=== PATIENT | male | born 1940 | race Caucasian/White ===

== ENCOUNTER → 2019-12-25 | Outpatient (CLI) | payer OTHER, BC ==
[~2019-12-25] MED LIST: AMLODIPINE BESY10 MG PO; ASPIRIN325 PO; ATORVASTATIN CA40 MG PO; COUMADIN 5 MG TA5 M1 PO; FENOFIBRATE160 MG PO; GLUCOTROL5 MG PO; LISINOPRIL20 MG PO; LOPRESSOR25 PO; METFORMIN HCL500 MG PO; PLAVIX 75 MG TA75 M1 PO; VITAMIN B-12500 MCG PO
== END ==
LOC: SJCVCIMAG 09:52
DX: I65.23 Occlusion and stenosis of bilateral carotid arteries (principal); R94.31 Abnormal electrocardiogram [ECG] [EKG]; I21.29 ST elevation (STEMI) myocardial infarction involving other sites; I44.0 Atrioventricular block, first degree; I25.10 Atherosclerotic heart disease of native coronary artery without angina pectoris; I71.2 Thoracic aortic aneurysm, without rupture; E78.5 Hyperlipidemia, unspecified; I10 Essential (primary) hypertension; E11.9 Type 2 diabetes mellitus without complications; Z95.2 Presence of prosthetic heart valve; Z79.01 Long term (current) use of anticoagulants; Z95.1 Presence of aortocoronary bypass graft; Z79.899 Other long term (current) drug therapy

== ENCOUNTER → 2020-06-25 | Outpatient (CLI) | payer OTHER, BC | LOC: SJCVC 13:00 | PROVIDERS: ATTEND Internal Medicine | DX: I25.10 Atherosclerotic heart disease of native coronary artery without angina pectoris (principal); R94.31 Abnormal electrocardiogram [ECG] [EKG]; I44.0 Atrioventricular block, first degree; I71.2 Thoracic aortic aneurysm, without rupture; I65.23 Occlusion and stenosis of bilateral carotid arteries; E78.5 Hyperlipidemia, unspecified; I10 Essential (primary) hypertension; E11.9 Type 2 diabetes mellitus without complications; Z95.2 Presence of prosthetic heart valve; Z79.01 Long term (current) use of anticoagulants; Z79.899 Other long term (current) drug therapy ==

== ENCOUNTER → 2021-01-05 | Outpatient (CLI) | payer OTHER, BC | LOC: SJCVCIMAG 08:43 | PROVIDERS: ATTEND Internal Medicine | DX: R94.31 Abnormal electrocardiogram [ECG] [EKG] (principal); I44.7 Left bundle-branch block, unspecified; I25.10 Atherosclerotic heart disease of native coronary artery without angina pectoris; I71.2 Thoracic aortic aneurysm, without rupture; I65.23 Occlusion and stenosis of bilateral carotid arteries; I44.0 Atrioventricular block, first degree; E78.5 Hyperlipidemia, unspecified; I10 Essential (primary) hypertension; E11.9 Type 2 diabetes mellitus without complications; Z79.01 Long term (current) use of anticoagulants; Z95.2 Presence of prosthetic heart valve; Z79.899 Other long term (current) drug therapy; Z72.89 Other problems related to lifestyle; Z79.82 Long term (current) use of aspirin; Z79.84 Long term (current) use of oral hypoglycemic drugs; Z86.73 Personal history of transient ischemic attack (TIA), and cerebral infarction without residual deficits ==

== ENCOUNTER → 2021-06-18 | Outpatient (CLI) | payer OTHER, BC | LOC: SJCVC 14:02 | PROVIDERS: ATTEND Internal Medicine | DX: R94.31 Abnormal electrocardiogram [ECG] [EKG] (principal); I44.0 Atrioventricular block, first degree; R42 Dizziness and giddiness; I25.10 Atherosclerotic heart disease of native coronary artery without angina pectoris; E11.9 Type 2 diabetes mellitus without complications; Z95.2 Presence of prosthetic heart valve; Z95.1 Presence of aortocoronary bypass graft; E78.5 Hyperlipidemia, unspecified; D68.59 Other primary thrombophilia; I65.29 Occlusion and stenosis of unspecified carotid artery; Z86.73 Personal history of transient ischemic attack (TIA), and cerebral infarction without residual deficits; Z79.82 Long term (current) use of aspirin; Z79.84 Long term (current) use of oral hypoglycemic drugs; Z79.01 Long term (current) use of anticoagulants; Z79.899 Other long term (current) drug therapy; Z72.89 Other problems related to lifestyle ==

== ENCOUNTER 2021-07-17 09:17 | Observation (INO) | payer OTHER, BC ==
[~2021-07-17] VITALS: Ht 180.3 cm; Wt 82.6 kg
[2021-07-17 09:58] LABS: ABSOLUTE NEUTROPHILS 6.4 thou/uL (1.4-8.2); BASOPHILS 0.8 % (0.0-2.0); EOSINOPHILS 2.8 % (0.0-3.0); HEMATOCRIT 45.2 % (42.0-52.0); HEMOGLOBIN 15.3 gm/dL (14.0-18.0); LYMPHOCYTES 14.8 % (24.0-44.0); MCH 28.8 pg (26.0-34.0); MCHC 33.8 g/dL (28.0-37.0); MCV 85.3 fL (80.0-100.0); MONOCYTES 4.8 % (1.0-8.0); PLATELET COUNT 123 thou/uL (150-400); POLYS 76.8 % (36.0-66.0); RDW 15.7 % (10.5-14.5); WBC 8.4 thou/uL (4.0-11.0)
[2021-07-17 10:04] VITALS: BP 133/69
[2021-07-17 10:13] LABS: ALBUMIN 3.9 g/dL (3.4-5.0); CALCIUM 9.2 mg/dL (8.5-10.1); TOTAL BILIRUBIN 1.3 mg/dL (0.2-1.0); TOTAL PROTEIN 7.1 g/dL (6.4-8.2)
[2021-07-17 10:15] LABS: APTT 29.5 Seconds (24.5-32.8); INR 1.36; PROTIME 14.6 Seconds (10.5-12.1)
[2021-07-17 10:18] LABS: POTASSIUM 4.1 mmol/L (3.5-5.1)
--- NOTE | 2021-07-17 15:38 | NUR ---
PT ARRIVED TO FLOOR FROM [employer] AT APPROXIMATE 1330. PT HAD A PACEMAKER PLACED TODAY. PT STATED HE WAS HAVING DIFFICULTY FOR THE LAST COUPLE MONTHS WITH INCREASED FATIQUE WHILE AT WORK FORCING HIM TO SIT DOWN. PACEMAKER PLACED ON RIGHT SIDE DUE TO PT BEING LEFT HANDED.
[2021-07-17 16:15] VITALS: BP 139/67
[2021-07-17 19:39] VITALS: BP 140/67
[2021-07-18 00:18] VITALS: BP 133/68
[2021-07-18 04:17] VITALS: BP 142/72
[2021-07-18 08:02] VITALS: BP 142/64
[2021-07-18 09:06] LABS: INR 1.22; PROTIME 13.2 Seconds (10.5-12.1)
[2021-07-18 11:44] VITALS: BP 142/64
[2021-07-18 12:15] VITALS: BP 133/45
--- NOTE | 2021-07-18 12:17 | NUR ---
ASSESSMENT CHARTED. PT ALERT AND ORIENTED. VSS. DENIED HAVING PAIN OR DISCOMFORT. PACEMAKER INCISION C/D/I. SEEN BY DR. WEST. ORDERS GIVEN TO DISCHARGE PT TO HOME. DISCHARGE INSTRUCTIONS GIVEN TO PT. PT VERBERLISED UNDERSTANDING.
--- NOTE | 2021-07-20 16:28 | P ---
[facility] [place] [address] PROCEDURE REPORT Name: MILLA FLORES Room #: 214-P [facility].#: [id number] Admission: 07/17/21 Attend Phys: Satya Jnae MD Discharge: 07/18/21 Date of : 40 Report #: [id number] THIS REPORT FOR: cc: SUSHMA - Joan family physician/PCP FAM - No family physician/PCP Satya Jane MD ~ DATE OF SERVICE: 07/17/2021 PREOPERATIVE DIAGNOSIS: Heart block. POSTOPERATIVE DIAGNOSIS: Heart block. HISTORY: The patient is an 80-year-old male with history of prior mechanical AVR and CABG, recently with presyncopal symptoms. He has a known first-degree AV block and left bundle branch block. He had a recent potline monitor showing periods of complete heart block. He is here for dual chamber pacemaker implantation. ANESTHESIA: The patient underwent MAC anesthesia with no anesthesia related complications. DESCRIPTION OF PROCEDURE: The patient underwent informed consent. We discussed the details of the procedure including the risks, which include but not limited to bleeding, infection, vascular damage, cardiac perforation and pneumothorax. He understood these risks and is willing to proceed. He received IV antibiotics and underwent a venogram, showing patency of the right axillary vein. I then made an incision under the right collarbone after injecting lidocaine. An incision was made, pocket created and access was obtained twice to the right axillary vein using the extrathoracic approach with sheaths positioned using the modified Seldinger technique. Leads were positioned in the right ventricular apex, right atrial appendage, both with adequate pacing and sensing thresholds. Leads were sutured to the prepectoral fascia. Device connected, tug test confirmed, pocket irrigated with vancomycin and the pocket was closed in 2 layers using 2-0 for the deep layer, 3-0 for the middle layer and surgical glue was placed in the outer skin layer. Patient awoke neurologically and hemodynamically intact. No complications and no significant bleeding. The implanted pacemaker was a Medtronic model number W3DR01, serial number [id number]. Atrial lead was a 5076, 45 cm, serial number [id number]. Ventricular lead was 5076 52 cm, serial number [id number]. The atrial lead demonstrated P-wave 1.9 millivolts, pacing impedance of 532 ohms and a pacing threshold of 1.25 volts at 0.4 milliseconds. The RV lead demonstrated R waves of greater than 20 millivolts, pacing impedance of 760 ohms and a pacing threshold of 0.75 volts at 0.4 milliseconds. The device was programmed to DDDR 60-130 mode. CONCLUSION: [facility] [address] [place] [address] PROCEDURE REPORT Name: MILLA FLORES Room #: 214-P [facility] Rj M.RJa#: [id number] Admission: 07/17/21 Attend Phys: Satya Jane MD Discharge: 07/18/21 Date of : 40 Report #: [id number] 1. Successful dual chamber pacemaker implantation. 2. Satisfactory atrial and ventricular pacing and sensing thresholds. <ELECTRONICALLY SIGNED> By: Satya Jane MD 07/20/21 1628 [id number] Satya Jane MD /nt
== END 2021-07-18 12:47 | disposition home or self-care (01) ==
LOC: CATH 09:17 → 2N 09:18 → CATH 13:25 → 2N 07-18 12:47
PROVIDERS: Nurse Practitioner; ADMIT Internal Medicine Cardiovascular Disease; ATTEND Internal Medicine Cardiovascular Disease
DX: I44.2 Atrioventricular block, complete (principal); I10 Essential (primary) hypertension; E11.9 Type 2 diabetes mellitus without complications; E78.5 Hyperlipidemia, unspecified; I25.10 Atherosclerotic heart disease of native coronary artery without angina pectoris; I71.2 Thoracic aortic aneurysm, without rupture; I65.29 Occlusion and stenosis of unspecified carotid artery; Z79.82 Long term (current) use of aspirin; Z79.84 Long term (current) use of oral hypoglycemic drugs; Z95.1 Presence of aortocoronary bypass graft
CPT/HCPCS: 62110; 62900; 70005

== ENCOUNTER → 2021-10-14 | Outpatient (CLI) | payer OTHER, BC | LOC: SJCVC 12:54 → SJCVCIMAG 12:54 | PROVIDERS: ATTEND Internal Medicine Cardiovascular Disease | DX: I08.8 Other rheumatic multiple valve diseases (principal); I25.10 Atherosclerotic heart disease of native coronary artery without angina pectoris; I71.2 Thoracic aortic aneurysm, without rupture; I65.23 Occlusion and stenosis of bilateral carotid arteries; E78.5 Hyperlipidemia, unspecified; I10 Essential (primary) hypertension; E11.9 Type 2 diabetes mellitus without complications; I42.9 Cardiomyopathy, unspecified; I44.2 Atrioventricular block, complete; Z95.0 Presence of cardiac pacemaker; Z86.79 Personal history of other diseases of the circulatory system; Z72.89 Other problems related to lifestyle; Z79.01 Long term (current) use of anticoagulants; Z79.82 Long term (current) use of aspirin; Z79.899 Other long term (current) drug therapy; Z79.84 Long term (current) use of oral hypoglycemic drugs; Z82.49 Family history of ischemic heart disease and other diseases of the circulatory system; Z95.1 Presence of aortocoronary bypass graft; Z95.4 Presence of other heart-valve replacement ==